=== PATIENT | female | born 1960 | race Two or more races ===

== ENCOUNTER 2018-08-16 08:53 | Outpatient (CLI) | payer OTHER | END 2018-08-16 09:03 | disposition home or self-care (01) | LOC: RAD 501 08:53 | DX: M54.2 Cervicalgia (principal) ==

== ENCOUNTER 2019-04-14 19:19 | Emergency (ER) | payer OTHER ==
[~2019-04-14] VITALS: Ht 167.6 cm; Wt 55.3 kg
[2019-04-14] MEDS ORDERED: COZAAR25 MG (19:47)
== END 2019-04-14 21:30 | disposition home or self-care (01) ==
LOC: ER 19:19
DX: H53.8 Other visual disturbances (principal)